=== PATIENT | female | born 1985 | race Caucasian/White ===

== ENCOUNTER 2020-03-04 06:38 | Inpatient (IN) | payer BC, SELFPAY ==
[2020-03-04] VITALS (100 sets, daily range): BP systolic 78–159; BP diastolic 44–129; PULSE 65–224; RESP 14–24; TEMP 36.6–37.3; O2SAT 88–100
--- NOTE | 2020-03-04 07:22 | WPDOBADMIT ---
Obstetrics - Admit Note Admission Note: record reviewed. No pertinent additions to the history and/or any subsequent changes in the physical findings that are not consistent with the expected course of the were found. EIL at 39 weeks Additions to the history and/or subsequent changes in the physical findings follow. None.
[2020-03-04 07:33] LABS: Basophils Percent Auto 0.4 % (0.2-1.2); Eosinophils Absolute Auto 0.1 K/mm3 (0-0.3); Eosinophils Percent Auto 0.9 % (0-4.4); Hematocrit 34.9 % (37.0-47.0); Immature Granulocyte Percent A 1.1 % (0-0.5); Lymphocytes Absolute Auto 1.92 K/mm3 (0.9-3.2); Lymphocytes Percent Auto 20.4 % (18.3-44.2); Mean Corpuscular HGB Conc 34.4 g/dl (32-36); Mean Corpuscular Hemoglobin 31.5 pg (26-34); Mean Corpuscular Volume 91.6 fl (80-100); Mean Platelet Volume 12.3 fl (7.4-10.4); Monocytes Absolute Auto 0.6 K/mm3 (0.1-0.6); Monocytes Percent Auto 6.4 % (2.6-8.5); Neutrophils Absolute Auto 6.7 K/mm3 (1.3-6.7); Neutrophils Percent Auto 70.8 % (45.5-73.1); Platelet Count Result 186 k/mm3 (150-375); Red Blood Count 3.81 M/mm3 (4.2-5.4); White Blood Count 9.4 K/mm3 (4.5-10.0)
[2020-03-04] MEDS: OXYTOCIN 30 UNITS/NS 500 ML 30 UNITS/500 ML BAG 6 UNITS IV CONT (07:53)
[2020-03-04] MEDS: LACTATED RINGERS 1,000 ML 125 ML IV CONT ×2 (07:53→11:40)
--- NOTE | 2020-03-04 08:34 | LDADM ---
This patient, Key Rubi, was admitted to Labor/Delivery/Recovery 109 on 03/04/20 at 06:38. Plans for labor, pain management and were discussed with patient. Patient/family oriented to hospital policies and general routines including ID bracelet, bed and alarms, visiting hours, pain management, procedures, bathroom and other care routines, personal items, smoking policy, room service/diet and guest tray routines, security routines, and visiting hours. Patient/Family are encouraged to report perceived risks to care and to ask questions if they do not understand what they are told or what they should do. See OBIX for further documentation.
--- NOTE | 2020-03-04 09:26 | P.PNAN_ITS ---
Anes - Eval Pre Procedure Procedure: labor epidural Date/Time: 03/04/20 09:26 Surgeon: connie Pre Op Diagnosis: Induction of Labor Patient Data Age: 35 Gender: F Height: Weight: Last Vital Signs Temp 36.8 C 03/04/20 08:30 Pulse 68 03/04/20 09:00 BP 110/74 03/04/20 09:00 Allergies Allergy/AdvReac Type Severity Reaction Status Date / Time No Known Allergies Allergy Verified 03/03/20 13:03 Home Medications Medication Instructions Recorded Confirmed Type PNV cmb#95-ferrous fumarate-FA 1 tablet PO DAILY 02/03/20 02/03/20 History [] ferrous sulfate 134 mg PO DAILY 02/03/20 02/03/20 History Laboratory Tests 03/04/20 03/04/20 03/04/20 07:16 07:16 07:16 WBC 9.4 K/mm3 K/mm3 (4.5-10.0) RBC 3.81 M/mm3 L M/mm3 (4.2-5.4) Hgb 12.0 g/dL g/dL (12.0-15.0) Hct 34.9 % L % (37.0-47.0) MCV 91.6 fl fl (80-100) MCH 31.5 pg pg (26-34) MCHC 34.4 g/dl g/dl (32-36) RDW 13.0 % % (11.5-14.5) Plt Count 186 k/mm3 k/mm3 (150-375) MPV 12.3 fl H fl (7.4-10.4) Immature Gran % (Auto) 1.1 % H % (0-0.5) Neut % (Auto) 70.8 % % (45.5-73.1) Lymph % (Auto) 20.4 % % (18.3-44.2) [place] % (Auto) 6.4 % % (2.6-8.5) Eos % (Auto) 0.9 % % (0-4.4) Baso % (Auto) 0.4 % % (0.2-1.2) Lymph # (Auto) 1.92 K/mm3 K/mm3 (0.9-3.2) [place] # (Auto) 0.6 K/mm3 K/mm3 (0.1-0.6) Eos # (Auto) 0.1 K/mm3 K/mm3 (0-0.3) Baso # (Auto) 0.0 K/mm3 K/mm3 (0.0-0.1) Abs Immat Gran (auto) 0.10 K/mm3 H K/mm3 (0.00-0.031) Absolute Neuts (auto) 6.7 K/mm3 K/mm3 (1.3-6.7) Absolute Nucleated RBC 0.0 K/mm3 K/mm3 (0.0-0.012) Nucleated RBC % 0.0 % % (0.0-0.2) RPR Pending Blood Type B Positive Antibody Screen Negative Patient hx anesthesia problems: none Family hx anesthesia problems: none PMFSH Social History Social History Smoking status: Never smoker Alcohol intake: never Substance use: never Spiritual care concerns: No Exam Day of Procedure 03/04/20 09:26
[2020-03-04 11:41] LABS: Rapid Plasma Reagin Non-Reactive (NonReactive)
--- NOTE | 2020-03-04 15:14 | PM.IMHP ---
H&P: HPI History of Present Illness Date/Time: 03/04/20 15:14 pt is an EIL at 39 weeks gestation. Pt has been actively pushing x 2 hours with FHR variables. Chief complaint: Induction of Labor Narrative: Key Rubi is a 35 year old female Review of Systems Review of Systems: All systems reviewed & are unremarkable except as noted in HPI and below Constitutional: Constitutional: Reports as per HPI Eyes: Eyes: Reports as per HPI [facility]LY [facility], [facility] Social History Social History Smoking status: Never smoker Alcohol intake: never Substance use: never Spiritual care concerns: No Meds Home Medications and Allergies Home Medications Medication Instructions Recorded Confirmed Type PNV cmb#95-ferrous fumarate-FA 1 tablet PO DAILY 02/03/20 02/03/20 History [] ferrous sulfate 134 mg PO DAILY 02/03/20 02/03/20 History Allergies Allergy/AdvReac Type Severity Reaction Status Date / Time No Known Allergies Allergy Verified 03/03/20 13:03 Vital Signs Vital Signs - 24 hr 03/04/20 07:48 03/04/20 08:00 03/04/20 08:15 Temperature Pulse Rate 80 79 76 Blood Pressure 108/88 109/78 119/80 Pulse Oximetry 03/04/20 08:30 03/04/20 09:00 03/04/20 09:30 Temperature 36.8 C 37.0 C Pulse Rate 71 68 Blood Pressure 117/76 110/74 Pulse Oximetry 03/04/20 09:45 03/04/20 10:00 03/04/20 10:15 Temperature Pulse Rate 74 78 72 Blood Pressure 113/69 117/71 118/74 Pulse Oximetry 03/04/20 10:30 03/04/20 10:46 03/04/20 11:15 Temperature Pulse Rate 82 79 88 Blood Pressure 115/70 118/70 121/79 Pulse Oximetry 03/04/20 11:16 03/04/20 11:19 03/04/20 11:24 Temperature Pulse Rate Blood Pressure Pulse Oximetry 100 98 100 03/04/20 11:27 03/04/20 11:29 03/04/20 11:30 Temperature Pulse Rate 91 93 89 Blood Pressure 129/75 127/76 132/77 Pulse Oximetry 100 03/04/20 11:32 03/04/20 11:34 03/04/20 11:35 Temperature Pulse Rate 85 81 Blood Pressure 123/63 120/63 Pulse Oximetry 100 03/04/20 11:36 03/04/20 11:37 03/04/20 11:38 Temperature 37.1 C Pulse Rate 83 84 Blood Pressure 119/69 117/63 Pulse Oximetry 03/04/20 11:39 03/04/20 11:41 03/04/20 11:44 Temperature Pulse Rate 85 Blood Pressure 109/68 Pulse Oximetry 100 100 03/04/20 11:49 03/04/20 11:51 03/04/20 11:54 Temperature Pulse Rate 87 Blood Pressure 94/57 L Pulse Oximetry 100 100 03/04/20 11:59 03/04/20 12:00 03/04/20 12:04 Temperature Pulse Rate 75 Blood Pressure 108/62 Pulse Oximetry 100 100 03/04/20 12:09 03/04/20 12:10 03/04/20 12:14 Temperature Pulse Rate 79 Blood Pressure 100/56 L Pulse Oximetry 100 100 03/04/20 12:19 03/04/20 12:20 03/04/20 12:24 Temperature Pulse Rate 73 Blood Pressure 102/56 L Pulse Oximetry 100 100 03/04/20 12:29 03/04/20 12:30 03/04/20 12:40 Temperature Pulse Rate 79 78 Blood Pressure 101/61 109/70 Pulse Oximetry 100 03/04/20 13:00 03/04/20 13:16 03/04/20 13:40 Temperature 37.2 C Pulse Rate 148 H 98 Blood Pressure 129/67 103/60 Pulse Oximetry 03/04/20 13:45 03/04/20 14:01 03/04/20 14:47 Temperature Pulse Rate 78 101 H Blood Pressure 106/60 125/63 Pulse Oximetry 100 03/04/20 14:52 03/04/20 14:57 03/04/20 15:02 Temperature Pulse Rate Blood Pressure Pulse Oximetry 100 100 100 03/04/20 15:06 Temperature Pulse Rate Blood Pressure Pulse Oximetry 88 L Exam Const: General: no acute distress Eyes: General: appearance normal, both eyes and all related structures : External Female Exam: normal external appearance Urinary Catheter: Urinary Catheter: patent and draining Skin: General skin exam: normal color Extrem: General: normal to inspection Psych: Mental Status: mental status grossly normal Affect: normal affect H&P: Results Labs Lab
--- NOTE | 2020-03-04 15:41 | PM.OBPNVD ---
OB - PN: Subj Subjective Date/time seen: 03/04/20 15:41Called to assess patient for failure to descend. She was in a +3 to +4 position, BUNNY, mother reported feeling exhausted. She had been pushing for more than an hour and half. The mother reported feeling exhausted. One pull of a kiwi vacuum was performed after application to the head. There was little movement and the procedure was abandoned. We agreed to proceed with delivery. OB - PN: Obj Data Labs CBC & Chem 7: 03/04/20 07:16 Labs: Laboratory Results - last 24 hr 03/04/20 03/04/20 03/04/20 07:16 07:16 07:16 WBC 9.4 RBC 3.81 L Hgb 12.0 Hct 34.9 L MCV 91.6 MCH 31.5 MCHC 34.4 RDW 13.0 Plt Count 186 MPV 12.3 H Immature Gran % (Auto) 1.1 H Neut % (Auto) 70.8 Lymph % (Auto) 20.4 [place] % (Auto) 6.4 Eos % (Auto) 0.9 Baso % (Auto) 0.4 Lymph # (Auto) 1.92 [place] # (Auto) 0.6 Eos # (Auto) 0.1 Baso # (Auto) 0.0 Abs Immat Gran (auto) 0.10 H Absolute Neuts (auto) 6.7 Absolute Nucleated RBC 0.0 Nucleated RBC % 0.0 RPR Non-reactive Blood Type B Positive Antibody Screen Negative OB - PN A/P Time Spent With Patient Time: Total time spent is greater than 50% in coordination of care (as documented) at patient's floor/unit and/or counseling patient:
--- NOTE | 2020-03-04 17:09 | PM.PROC ---
Procedure Note - Detailed Date of procedure: 03/04/20 Pre-op diagnosis: Induction of Labor Term gestation, Failure to progress Post-op diagnosis: same Procedure performed: low-transverse delivery Description of procedure: The patient was taken the operating room. She was prepped and draped in the dorsal supine position with leftward tilt after induction of spinal anesthetic. When anesthesia was found to be adequate a low-transverse skin incision was made and carried down to the level the fascia with the knife. The fascial incision was made at the midline with a scalpel. The fascial incision was extended laterally with Mansfield scissors. The fascia was tented upward superior and inferior with Pj clamps. The rectus muscles were dissected off bluntly. The rectus muscles at the midline. The preperitoneal fat was dissected bluntly at the superior aspect of the separate the rectus muscles. The peritoneal cavity was entered bluntly in the same area. The peritoneal incision was extended superior and inferior with good visualization of bladder. Bladder blade was inserted. A low-transverse incision was made on the uterus with the scalpel. It was carried down the level of the amniotic cavity with a knife. The amniotic cavity bluntly. The uterine incision was made laterally with blunt traction. The infant was delivered.Head was firmly fixed and the pelvis and deep. The cord was clamped and cut. The infant was handed off to waiting pediatric staff. Cord bloods were obtained. The placenta was removed manually. The uterus was exteriorized. Uterus cleared of all clots and debris. Uterus closed in 0 Vicryl in a running locked fashion. The uterus incision was extended dramatically in a caudal direction bilaterally at the edges. Multiple 0 Vicryl sutures were used in a running fashion ovary is aspects of this extended incision. Multiple ozflzy-fs-zskvph were used in the lateral aspects of the incision to stop bleeding. The uterine incision was low near the edge of the vagina. So the closure was just above the vagina. Ureters were palpated bilaterally and confirmed to be out of the way of the repair. The uterus was returned to the abdomen. The gutters were cleared of all clots and debris. The fascia was closed 0 Vicryl in a running fashion. Subcutaneous tissue was irrigated and bleeding areas were cauterized. The skin was closed with subcuticular absorbable luz marina. The incision was covered with derma tee. The patient tolerated the procedure well. She was taken recovery room stable condition. Sponge, lap, needle counts were correct x2. Anesthesia: spinal Surgeon: Criselda Duron MD Estimated blood loss (mL): 240 Drains: No Packing: No Pathology: none sent Complications: No immediate complications Condition: stable Disposition: floor Findings: Normal maternal anatomy. Average size with normal Apgars.
--- NOTE | 2020-03-04 19:41 | OBPPTRN ---
Patient transferred to post room #281 via (stretcher). Support person present. Oriented to unit, room, information board, rooming in, admission packet and security measures. Patient verbalizes understanding.
[2020-03-04] MEDS: IBUPROFEN 600 MG TABLET PO (20:20)
[2020-03-04] MEDS: DEXTROSE 5%/0.45% SOD CHL 1,000 ML 125 ML IV CONT (22:28)
[2020-03-05] VITALS: BP 98/50; PULSE 79; RESP 18; TEMP 37; O2SAT 96
[2020-03-05 04:00] VITALS: BP 96/52; PULSE 89; RESP 16; TEMP 37.1; O2SAT 97
[2020-03-05] MEDS: IBUPROFEN 600 MG TABLET PO ×4 (04:14→22:57)
[2020-03-05 04:31] LABS: Basophils Percent Auto 0.1 % (0.2-1.2); Eosinophils Percent Auto 0.2 % (0-4.4); Hematocrit 27.1 % (37.0-47.0); Hemoglobin 9.4 g/dL (12.0-15.0); Immature Granulocyte Absolute 0.04 K/mm3 (0.00-0.031); Immature Granulocyte Percent A 0.3 % (0-0.5); Lymphocytes Absolute Auto 1.08 K/mm3 (0.9-3.2); Lymphocytes Percent Auto 9.4 % (18.3-44.2); Mean Corpuscular HGB Conc 34.7 g/dl (32-36); Mean Corpuscular Hemoglobin 31.5 pg (26-34); Mean Corpuscular Volume 90.9 fl (80-100); Monocytes Absolute Auto 0.6 K/mm3 (0.1-0.6); Monocytes Percent Auto 5.5 % (2.6-8.5); Neutrophils Absolute Auto 9.7 K/mm3 (1.3-6.7); Neutrophils Percent Auto 84.5 % (45.5-73.1); Platelet Count Result 140 k/mm3 (150-375); Red Blood Count 2.98 M/mm3 (4.2-5.4); White Blood Count 11.5 K/mm3 (4.5-10.0)
--- NOTE | 2020-03-05 08:33 | WPDANLDNPN2 ---
Anes-Prog Note L&D-Neuraxial Date/Time: 03/05/20 08:33 Neuraxial medications: epidural PF morphine Opiod-related complaints: none Patient feedback: Patient satisfied with post-operative pain management.
--- NOTE | 2020-03-05 08:34 | WPDANLDPN2 ---
Anes-Prog Note L&D Date/Time: 03/05/20 08:34 Comfortable throughout: section Neuraxial method: epidural Epidural/Spinal procedure site: clean & non-tender Neuro status: Neuro function grossly intact. Cardiovascular status: normal Respiratory status: normal Airway patency: baseline Mental status: baseline Post-Op hydration status: normal Vital Signs: Last Vital Signs Temp 37.1 C 03/05/20 04:00 Pulse 89 03/05/20 04:00 Resp 16 03/05/20 04:00 BP 96/52 L 03/05/20 04:00 Pulse Ox 97 03/05/20 04:00 I/O: Intake & Output 03/04/20 03/05/20 03/05/20 23:59 07:59 15:59 Output Total 120 1525 Balance -120 -1525 Patient feedback: Patient satisfied with anesthetic care.
[2020-03-05] MEDS: SIMETHICONE 80 MG TAB.CHEW PO ×2 (09:54→16:25)
[2020-03-05] MEDS: MULTIVIT/MIN/PREN/FOL AC/IRON TABLET 1 TAB PO (09:55)
[2020-03-05] MEDS: POLYSACCHARIDE IRON COMPLEX 150 MG CAPSULE PO ×2 (09:55→16:25)
[2020-03-05] MEDS: DOCUSATE SODIUM 100 MG CAPSULE PO ×2 (09:55→16:25)
--- NOTE | 2020-03-05 11:11 | PM.OBPNVD ---
OB - PN: Subj Subjective Date/time seen: 03/05/20 11:11 OB - PN: Obj Data Labs CBC & Chem 7: 03/05/20 04:14 Labs: Laboratory Results - last 24 hr 03/04/20 03/05/20 07:16 04:14 WBC 11.5 H RBC 2.98 L Hgb 9.4 L Hct 27.1 L MCV 90.9 MCH 31.5 MCHC 34.7 RDW 13.0 Plt Count 140 L MPV 12.0 H Immature Gran % (Auto) 0.3 Neut % (Auto) 84.5 H Lymph % (Auto) 9.4 L [place] % (Auto) 5.5 Eos % (Auto) 0.2 Baso % (Auto) 0.1 L Lymph # (Auto) 1.08 [place] # (Auto) 0.6 Eos # (Auto) 0.0 Baso # (Auto) 0.0 Abs Immat Gran (auto) 0.04 H Absolute Neuts (auto) 9.7 H Absolute Nucleated RBC 0.0 Nucleated RBC % 0.0 RPR Non-reactive OB - PN A/P Plan day: 1 Plan: routine care Time Spent With Patient Time: Total time spent is greater than 50% in coordination of care (as documented) at patient's floor/unit and/or counseling patient: Time with patient: less than 15 minutes Review of Systems Review of Systems: All systems reviewed & are unremarkable except as noted in HPI and below Constitutional: Constitutional: Reports as per HPI and Reports no additional constitutional complaints Eyes: Eyes: Reports as per HPI ENT: Reports system reviewed and no additional complaints, except as documented Cardiovascular: Cardiovascular: Reports as per HPI Respiratory: Respiratory: Reports as per HPI Gastrointestinal: Gastrointestinal: Reports as per HPI Genitourinary: Genitourinary: Reports no additional female genitourinary complaints Musculoskeletal: Musculoskeletal: Reports no additional musculoskeletal complaints Integumentary/Breasts: Skin/Breast: Reports system reviewed and no additional complaints, except as docu Neurologic: Reports system reviewed and no additional complaints, except as documented Psychiatric: Psychiatric: Reports no additional psychiatric complaints Endocrine: Endocrine: Reports no additional endocrine complaints Hematologic/Lymphatic: Hematologic/Lymphatic: Reports no additional hematologic/lymphatic complaints Allergic/Immunologic: Allergic/Immunologic: Reports no additional allergic/immunologic complaints Exam Narrative: Exam Narrative: Fundus firm and vaginal flow controlled. Negative homans. No redness, warmth, or pain in lower ext. Const: General: comfortable Orientation/consciousness: oriented to person, oriented to place, oriented to time and patient oriented x3 Limitations: no limitations HENMT: Head: normal to inspection Ears: hearing grossly normal bilaterally General nose exam: Normal external nose present Face and sinus: normal facial exam Mouth: Yes Normal oral and palatal mucosa present Teeth and gingiva: dentition normal Throat: posterior oropharynx normal Eyes: General: appearance normal, both eyes and all related structures Neck: Neck: normal visual inspection Thyroid: thyroid normal Chest: Chest palpation & inspection: normal inspection of the chest Breast/axilla inspection: normal inspection of the breasts Resp: Effort & Inspection: normal respiratory effort Auscultation: clear to auscultation bilaterally Cardio: Rate: regular rate Rhythm: regular rhythm GI: Inspection: normal to inspection Auscultation: normal bowel sounds : General: Yes bimanual renal exam normal bilaterally Skin: General skin exam: normal color and no rashes or lesions noted Neuro: General: oriented to person, oriented to place, oriented to time and patient oriented x3 Extrem: General: normal to inspection Psych: Appearance: grossly normal Mental Status: mental status grossly normal Affect: normal affect Attitude: cooperative Judgement: Good judgement present (Psych)
--- NOTE | 2020-03-05 17:17 | PC.NURSE ---
Patient viewed the discharge video Mother & Baby Care, The First Two Weeks . Patient was given the opportunity and encouraged to ask questions. Patient verbalized understanding of information shared and has been given the mother/baby guide for home reference.
[2020-03-05 20:00] VITALS: BP 94/50; PULSE 95; RESP 16; TEMP 36.5; O2SAT 100
[2020-03-06] MEDS: IBUPROFEN 600 MG TABLET PO ×3 (07:12→15:58)
[2020-03-06] MEDS: DOCUSATE SODIUM 100 MG CAPSULE PO (07:13)
[2020-03-06] MEDS: MULTIVIT/MIN/PREN/FOL AC/IRON TABLET 1 TAB PO (07:13)
[2020-03-06 07:15] VITALS: BP 110/66; PULSE 78; RESP 16; TEMP 36.8
--- NOTE | 2020-03-06 10:40 | PM.OBPNVD ---
OB - PN: Subj Subjective Date/time seen: 03/06/20 10:40 Patient comments: no complaints and pain well controlled baby status: doing well OB - PN: Obj Data Labs CBC & Chem 7: 03/05/20 04:14 OB - PN A/P Plan day: 2 Plan: routine care and discharge home Comments: RTC in 1 week. Time Spent With Patient Time: Total time spent is greater than 50% in coordination of care (as documented) at patient's floor/unit and/or counseling patient: Review of Systems Review of Systems: All systems reviewed & are unremarkable except as noted in HPI and below Exam Narrative: Exam Narrative: Fundus firm. Flow controlled. Incision looks great and is open to air. No redness, warmth, or edema of lower ext. Neg homans sign. Const: General: comfortable Chest: Breast/axilla inspection: normal inspection of the breasts Resp: Effort & Inspection: normal respiratory effort Auscultation: clear to auscultation bilaterally Cardio: Rate: regular rate GI: Auscultation: normal bowel sounds Psych: Appearance: grossly normal Affect: normal affect Attitude: cooperative Judgement: Good judgement present (Psych)
[2020-03-06] MEDS: SIMETHICONE 80 MG TAB.CHEW PO (13:01)
[2020-03-08 08:54] VITALS: BP 110/67; PULSE 82; RESP 16; TEMP 36.9; O2SAT 98
--- NOTE | 2020-04-03 20:22 | PM.OBDSVD ---
DS: Admitting Diagnosis Admitting Diagnosis Admitting Diagnosis: Induction of Labor DS: Discharge Diagnosis Discharge Diagnosis (1) delivery delivered: Code(s): O82 - Encounter for delivery without indication Status: Acute OB - DS: Summary OB Procedures : None OB Procedures Intrapartum: OB Procedures: : None Peripartum Data Delivery Method: Section Procedures: Procedures Operation Date: 03/04/20 16:00 Actual Procedures Side Surgeon p Section Bilateral Criselda Duron MD Time Spent with Patient Time attestation: Total time spent providing and/or coordinating discharge services: Discharge Plan Discharge Attending physician on discharge: Antoinette Remy Consulting providers: Criselda Duron ; Ophelia Kruse ; Adali Frankel Discharging Clinician: Ophelia Kruse Patient Disposition: Home, Self-Care Activity: pelvic rest Diet: as tolerated Wound Care Instructions: follow printed instructions Discharge Instructions: Education: Mom and Baby Guide Given to: Mother Follow-Up: Call your delivering provider's office for an appointment to be seen in: 1 Week Mom and baby should come to the [facility] for the follow-up appointment. Appointment Date/Time: March 08, 2020 at 9:00 am What to expect at your follow-up visit: Blood Pressure Check Call [phone] if you are unable to keep your appointment time. BREAST CARE: * Wear a snug supportive bra. * For engorgement discomfort: Breast Feeding: * Apply warm moist washcloths * Express milk as needed to relieve engorgement * Wear loose clothing * For sore nipples: * Identify correct latch-on * Apply warm moist washcloths before and after nursing * Air dry nipples after nursing * May apply Lansinoh cream to nipples ABDOMINAL INCISION: (if applicable) * Allow incision to air dry * Do NOT use lotions for powders on your incision * When showering, allow soap and water to run over the incision, but do not wash incision EPISIOTOMY/PERINEAL CARE: * Until bleeding stops, use your carolin bottle after urinating * Change your pad frequently throughout the day * You may take sitz baths several times a day (fill your bathtub with warm water and soak for 20 minutes.) Do NOT bathe in the water * No tub baths until seen by your physician - You may shower ACTIVITY: * Rest as much as possible. * Do not exercise or lift anything heavier than your baby (such as laundry or other children.) * Avoid stairs or driving as much as possible. * Do not put anything into the vagina. No douching, tampons, or sexual activity until seen by physician. NOTIFY PHYSICIAN IF YOU HAVE ANY QUESTIONS OR IF ANY OF THE FOLLOWING SYMPTOMS OCCUR: * If your episiotomy or incision becomes red, swollen, or more painful than what you have experienced in the hospital. * If your vaginal bleeding becomes foul smelling. * If your vaginal bleeding becomes more heavy than a period or if your bleeding changes from pink to bright red. However, you may pass an occasional walnut-sized clot once or twice for the first week . * If you experience a sharp, shooting pain in you calves. * If you discover a hard, reddened area on your breast or if you experience flu-like symptoms. DIET: * Eat regular, well-balanced meals. * Drink plenty of fluids daily. If , drink to thirst. Stand Alone Forms: General Discharge Information Follow-up/Referrals: Antoinette Remy MD [Physician] - Discharge Medications: New hydrocodone-acetaminophen 5-325 mg Tablet 1 tab PO Q3H PRN (Reason: Moderate Pain (4-6)) Qty: 10 RF: 0 ibuprofen 600 mg Tablet 600 mg PO Q6H PRN (Reason: Cramping) Qty: 20 RF: 0 Continued ferrous sulfate 134 mg (27 mg iron) Tablet 134 mg PO DAILY RF: 0 PNV
== END 2020-03-06 16:48 | disposition home or self-care (01) | DRG 788 ==
LOC: ANHLDR 06:41 → ANHOB2 20:03
PROVIDERS: Obstetrics & Gynecology; Admitting Provider Obstetrics & Gynecology; Visit Provider Obstetrics & Gynecology
PROC: 10D00Z1 Extraction of Products of Conception, Low, Open Approach (ICD-10-PCS; CPT 59514; principal; 2020-03-04 16:00)
DX: O32.4XX0 Maternal care for high head at term, not applicable or unspecified (principal); Z3A.40 40 weeks gestation of pregnancy; Z37.0 Single live birth; O76 Abnormality in fetal heart rate and rhythm complicating labor and delivery
CPT/HCPCS: 36415; 85025; 86592; 86850; 86900; 86901; A9270; J0131; J2274; J2405; J2590; J2795; J7120